=== PATIENT | female | born 1945 | race Caucasian/White ===

== ENCOUNTER 2019-07-26 09:06 | Inpatient (IN) | payer BC ==
[~2019-07-26] VITALS: Ht 160 cm; Wt 68.0 kg
[~2019-07-26 09:06] MED LIST: CHILDREN'S ASPI81 MG PO; ESTROGEL50 GM TOP; FLUDROCORTISON0.1 MG PO; GABAPENTIN600 M1 PO; LEVOCETIRIZINE D5 MG PO; LUNESTA3 MG PO; MUCINEX1200 MG PO; NORCO 10-325 T1 EACH PO; PREMARIN VAGI42.5 G1; TRAZODONE 150150 M1 PO; VALACYCLOVIR1000 MG PO
[2019-07-26 09:16] VITALS: BP 107/80
[2019-07-26 09:22] LABS: URINE BILIRUBIN NEGATIVE (Negative); URINE BLOOD NEGATIVE (Negative); URINE CLARITY CLEAR; URINE COLOR YELLOW; URINE GLUCOSE-RANDOM NEGATIVE (Negative); URINE KETONES NEGATIVE (Negative); URINE LEUKOCYTES-REFLEX NEGATIVE (Negative); URINE NITRITE-REFLEX NEGATIVE (Negative); URINE PROTEIN NEGATIVE (Negative); URINE UROBILINOGEN 0.2 E.U./dl (0.2-1.0)
[2019-07-26 09:40] LABS: ABSOLUTE BASOPHILS 0.1 thou/uL (0.0-0.2); ABSOLUTE EOSINOPHILS 0.9 thou/uL (0.0-0.7); ABSOLUTE LYMPHOCYTES 1.3 thou/uL (0.8-5.3); ABSOLUTE MONOCYTES 0.6 thou/uL (0.0-1.2); ABSOLUTE NEUTROPHILS 6.9 thou/uL (1.6-8.1); EOSINOPHILS 9.2 %; HEMATOCRIT 39.9 % (37.0-47.0); HEMOGLOBIN 13.4 gm/dL (12.0-15.0); LYMPHOCYTES 12.9 %; MCH 29.3 pg (26.0-34.0); MCHC 33.6 g/dL (28.0-37.0); MCV 87.3 fL (80.0-100.0); MONOCYTES 6.1 %; MPV 7.6 fl. (7.2-11.1); NUCLEATED RBCS 0 /100WBC; PLATELET COUNT* 477 thou/uL (150-400); POLYS 70.8 %; RBC 4.57 mil/uL (4.20-5.00); RDW-CV 14.8 % (10.5-14.5); WBC 9.7 thou/uL (4.0-11.0)
[2019-07-26 10:20] LABS: CALCIUM 9.2 mg/dL (8.5-10.1); CREATININE 1.2 mg/dL (0.6-1.3); POTASSIUM 4.7 mmol/L (3.5-5.1)
[2019-07-26 10:24] LABS: ALBUMIN 3.1 g/dL (3.4-5.0); TOTAL BILIRUBIN 0.5 mg/dL (<0.1-1.0); TOTAL PROTEIN 6.6 g/dL (6.4-8.2)
[2019-07-26 13:17] VITALS: BP 134/86
[2019-07-26 14:00] VITALS: BP 134/86
--- NOTE | 2019-07-26 15:41 | EKG ---
[place] [address] ELECTROCARDIOGRAM REPORT Name: AQUILINO SZYMANSKI Room: [address] ADM IN M.R.#: [id number] Admission: 07/26/19 Attend Phys: Tamara Barajas Discharge: Date of : 47 Report #: [id number] THIS REPORT FOR: //name// [facility] ED Test Date: 2019-07-26 Test Time: 09:36:13 Pat Name: AQUILINO SZYMANSKI Department: Room: [facility] Gender: F Production Support Supervisor: : 1945 Requested By: Timi Weathers Order Number: [id number] MD: Kody Todd Measurements Intervals [place] Rate: 81 P: [place]: 115 QRS: 8 QRSD: 96 T: 27 QT: 365 QTc: 424 Interpretive Statements Atrial-paced complexes Low voltage, precordial leads Baseline wander in lead(s) I Compared to ECG 10/16/2015 07:56:15 ventricular depolarization is no longer paced Electronically Signed On 07-26-2019 15:41:26 PERSONAL INSURANCE ADVISOR by Kody Todd [email or web address] <ELECTRONICALLY SIGNED> By: Kody Todd MD, FAC 07/26/19 1541 0936 0936 Kody Todd MD, [facility] /EPI
[2019-07-26 21:00] VITALS: BP 114/72
[2019-07-27 04:35] LABS: HEMOGLOBIN 11.5 gm/dL (12.0-15.0); MCH 28.9 pg (26.0-34.0); MCHC 32.7 g/dL (28.0-37.0); MCV 88.2 fL (80.0-100.0); MPV 7.5 fl. (7.2-11.1); RBC 3.97 mil/uL (4.20-5.00); RDW-CV 14.9 % (10.5-14.5); WBC 6.3 thou/uL (4.0-11.0)
[2019-07-27 04:42] LABS: CALCIUM 8.6 mg/dL (8.5-10.1); POTASSIUM 4.4 mmol/L (3.5-5.1)
[2019-07-27 07:55] VITALS: BP 119/77
[2019-07-27 19:30] VITALS: BP 104/68
[2019-07-28 04:00] VITALS: BP 140/72
[2019-07-28 05:32] LABS: ABSOLUTE EOSINOPHILS 0.5 thou/uL (0.0-0.7); ABSOLUTE LYMPHOCYTES 1.3 thou/uL (0.8-5.3); ABSOLUTE MONOCYTES 0.5 thou/uL (0.0-1.2); BASOPHILS 0.6 %; EOSINOPHILS 6.6 %; HEMATOCRIT 36.5 % (37.0-47.0); LYMPHOCYTES 17.6 %; MCHC 32.8 g/dL (28.0-37.0); MCV 88.4 fL (80.0-100.0); MONOCYTES 6.9 %; MPV 7.3 fl. (7.2-11.1); NUCLEATED RBCS 0 /100WBC; PLATELET COUNT* 401 thou/uL (150-400); POLYS 68.3 %; RBC 4.13 mil/uL (4.20-5.00); RDW-CV 14.9 % (10.5-14.5); WBC 7.4 thou/uL (4.0-11.0)
[2019-07-28 06:06] LABS: CALCIUM 8.7 mg/dL (8.5-10.1); POTASSIUM 4.4 mmol/L (3.5-5.1)
[2019-07-28 08:10] VITALS: BP 117/79
[2019-07-28 16:00] VITALS: BP 144/70
[2019-07-28 20:00] VITALS: BP 101/65
[2019-07-29 00:18] VITALS: BP 114/71
[2019-07-29 04:00] VITALS: BP 119/49
[2019-07-29 07:35] VITALS: BP 124/72
[2019-07-29 08:26] LABS: HEMATOCRIT 37.1 % (37.0-47.0); HEMOGLOBIN 12.2 gm/dL (12.0-15.0); MCV 88.1 fL (80.0-100.0); MPV 7.5 fl. (7.2-11.1); RBC 4.21 mil/uL (4.20-5.00); RDW-CV 14.7 % (10.5-14.5); WBC 14.1 thou/uL (4.0-11.0)
[2019-07-29 08:42] LABS: PROTIME 10.3 Seconds (9.20-11.50)
--- NOTE | 2019-07-29 12:37 | CON ---
[address] [address] CONSULTATION Name: AQUILINO SZYMANSKI Room: [address] IN .R.#: [id number] Admission: 07/26/19 Attend Phys: Tamara Barajas Discharge: Date of : 47 Report #: [id number] THIS REPORT FOR: //name// CC: Tamara Jimenez DATE OF SERVICE: 07/26/2019 REASON FOR CONSULTATION: Abdominal mass. SUBJECTIVE: A 74-year-old female who had a prior history of right-sided breast cancer, status post lumpectomy, received radiation therapy. The patient reported that she did not have any adjuvant endocrine treatment or chemotherapy at that time. She did not have a followup in terms of mammograms. The patient stated that she elected not to have an annual mammogram. She reported generalized abdominal pain, nonradiating, 3/10 in severity for the last 6 months in addition to bloating and increased abdominal girth. She denies any nausea, vomiting or weight loss. REVIEW OF SYSTEMS: All systems were reviewed. It was negative except the above. PAST MEDICAL HISTORY: GERD, history of breast cancer. PAST SURGICAL HISTORY: Lumpectomy, gastric ulcer surgery x 2 in 1989, hysterectomy, but no oophorectomy. MEDICATIONS: Per admission list. ALLERGIES: MORPHINE AND LATEX. SOCIAL HISTORY: No smoking, no alcohol abuse, no drug abuse. FAMILY HISTORY: Noncontributory. PHYSICAL EXAMINATION: VITAL SIGNS: Today, temperature 36.8, pulse 70, respirations 16, blood pressure is 134/86, SpO2 was 96% on room air. GENERAL: The patient was lying in bed. She was not in acute distress. LUNGS: Clear to auscultations bilaterally. HEART: Regular rate and rhythm. S1, S2 within normal limits. ABDOMEN: Soft, nontender. However, it is distended. EXTREMITIES: No edema, no cyanosis, no clubbing. LABORATORY DATA: Today, WBC 9.7, hemoglobin 13.4, platelets 477, creatinine 1.2. CA-125 [place] [address] CONSULTATION Name: AQUILINO SZYMANSKI Room: [address] IN [facility]#: [id number] Admission: 07/26/19 Attend Phys: Tamara Barajas Discharge: Date of : 47 Report #: [id number] IMAGING: CT abdomen showed large central mesenteric and intraperitoneal fluids with multiple enhancing peritoneal soft tissues concerning for malignant ascites and multiple soft tissues in the left upper quadrant omentum. A CT chest is still pending. ASSESSMENT AND PLAN: A 74-year-old female who had a past medical history of breast cancer, status post lumpectomy. The patient had unavailable records at that time, presenting with abdominal retroperitoneal masses consistent with active malignancy. RECOMMENDATIONS: 1. We will arrange for a biopsy by Interventional Radiology. 2. Pain management per hospital team. 3. We will wait for CA-125. 4. I recommend stopping her hormone replacement therapy until we evaluate her pathology. We will follow the patient during hospitalization. <ELECTRONICALLY SIGNED> By: Jomar Fuentes MD 07/29/19 1237 1554 0002Mojulissa Fuentes MD /nt
[2019-07-29 15:11] LABS: BF RBC 1931 /mm3; TOTAL CELL COUNT 299 /mm3
[2019-07-29 15:28] LABS: CLARITY HAZY; TOTAL VOLUME 3460 ml
[2019-07-29 15:30] LABS: BF OTHER CYTO TO FOLLOW
[2019-07-29 15:41] LABS: BF LYMPHOCYTES 91 %; BF POLYS 9 %; BF TISSUE 8 /100 WBC
[2019-07-29 15:42] LABS: SOURCE PARACENTESIS
[2019-07-29 16:29] VITALS: BP 107/65
[2019-07-29 19:57] VITALS: BP 119/80
[2019-07-30 05:23] LABS: HEMOGLOBIN 11.4 gm/dL (12.0-15.0); MCH 29.4 pg (26.0-34.0); MCHC 33.5 g/dL (28.0-37.0); MCV 87.6 fL (80.0-100.0); MPV 7.1 fl. (7.2-11.1); NUCLEATED RBCS 0 /100WBC; PLATELET COUNT* 393 thou/uL (150-400); RBC 3.88 mil/uL (4.20-5.00); RDW-CV 14.7 % (10.5-14.5); WBC 9.2 thou/uL (4.0-11.0)
[2019-07-30 05:30] LABS: CREATININE 1.1 mg/dL (0.6-1.3); POTASSIUM 4.5 mmol/L (3.5-5.1)
[2019-07-30 06:16] LABS: ABSOLUTE EOSINOPHILS 1.5 thou/uL (0.0-0.7); ABSOLUTE LYMPHOCYTES 1.2 thou/uL (0.8-5.3); ABSOLUTE MONOCYTES 0.4 thou/uL (0.0-1.2); ABSOLUTE NEUTROPHILS 6.2 thou/uL (1.6-8.1); ATYPICAL LYMPHS 1 %; PLATELET ESTIMATE ADEQUATE
[2019-07-30 08:05] VITALS: BP 107/66
[2019-07-30 12:06] LABS: BODY FLUID AMYLASE 137 U/L (()); BODY FLUID LDH 776 IU/L (()); BODY FLUID PROTEIN 4.4 g/dL (())
[2019-07-30] MEDS ORDERED: OXYCODONE HCL 55 MG PO (13:34)
[2019-07-30 13:38] VITALS: BP 107/66
[2019-07-31 21:46] LABS: SOURCE ABDOMINAL
--- NOTE | 2019-08-05 13:07 | PATH ---
[address] [address] PATHOLOGY RPT PROCEDURE Name: AQUILINO SZYMANSKI Room: [address] IN [facility]#: [id number] Admission: 07/26/19 Date of : 47 Discharge: 07/30/19 Report #: [id number] Path Case #: [id number] Note [facility] Accession Number: [id number] TESTS RESULT FLAG UNITS REF RANGE LAB Clinician Provided Cytology Information No. of containers..01 Other (Miscellaneous) Source: ASCITES DIAGNOSIS: 02 ASCITES INCONCLUSIVE. SCANT CELLULARITY WITH RARE ATYPICAL CELLS SUSPICIOUS FOR MALIGNANCY. SEE COMMENT. THIS INTERPRETATION INCLUDES EVALUATION OF A CELL BLOCK. COMMENT: THE ABDOMINAL/PELVIC CT SCAN PERFORMED 07/26/2019 SHOWING MULTIPLE PERITONEAL SOFT TISSUE NODULES SUSPICIOUS FOR PERITONEAL METASTASES IS NOTED. REVIEW OF DR. PENNIE ROBB'S CONSULTATION REPORT DATED 07/26/2019 REVEALS A HISTORY OF RIGHT-SIDED BREAST CANCER STATUS POST LUMPECTOMY/RADIATION THERAPY. REVIEWED WITH DR. GABBIE FLORES, WHO AGREES WITH THE DIAGNOSIS. Signed out by: 02 Eduardo Davalos MD, Pathologist NPI- [id number] Performed by: Rudolph Coello, Wet Process Miller Head Assistant (ASCP) Gross description: 01 50ML, YELLOW, CLOUDY /LCS 09/03/1840 0000 Local FLAG LEGEND: L-Low Normal,H-High Normal,LL-Alert Low,HH-Alert High <-Panic Low,>-Panic High,A-Abnormal,AA-Critical Abnormal Performed at: 01 [facility] [address] [place] [address] Angel Dias MD, [address] [place] [address] Eduardo Davalos MD, Specimen Comment: A courtesy copy of this report has been sent to [phone] Specimen Comment: [phone], Specimen Comment: [id number] Specimen Comment: Report sent to ,DR ELDRIDGE,[place] [address] PATHOLOGY RPT PROCEDURE Name: AQUILINO SZYMANSKI Room: [address] IN [facility].#: [id number] Admission: 07/26/19 Date of : 47 Discharge: 07/30/19 Report #: [id number] Path Case #: [id number] Specimen Comment: Report sent to Performed at: 01 [facility] [place] [address], [place], [place] [id number] MD Angel Dias MD Phone: [phone]
== END 2019-07-30 13:05 | disposition home or self-care (01) | DRG 843 ==
LOC: M.ERS 09:06 → M.TBA-ER 11:50 → M.ORTHSURG 11:50
PROVIDERS: Emergency Medicine Emergency Medical Services; Internal Medicine; ADMIT Family Medicine
PROC: 0W9G3ZZ Drainage of Peritoneal Cavity, Percutaneous Approach (ICD-10-PCS; principal; 2019-07-29)
DX: C79.89 Secondary malignant neoplasm of other specified sites (principal); J96.01 Acute respiratory failure with hypoxia; E43 Unspecified severe protein-calorie malnutrition; C80.1 Malignant (primary) neoplasm, unspecified; K21.9 Gastro-esophageal reflux disease without esophagitis; M19.90 Unspecified osteoarthritis, unspecified site; D47.3 Essential (hemorrhagic) thrombocythemia; K59.00 Constipation, unspecified; Z90.710 Acquired absence of both cervix and uterus; Z88.6 Allergy status to analgesic agent; Z91.040 Latex allergy status; Z85.3 Personal history of malignant neoplasm of breast; Z87.891 Personal history of nicotine dependence; Z68.26 Body mass index [BMI] 26.0-26.9, adult

== ENCOUNTER 2019-08-06 17:04 | Inpatient (IN) | payer BC ==
[~2019-08-06 17:04] MED LIST changes: +OXYCODONE HCL 55 MG PO
[2019-08-07 11:05] VITALS: BP 91/60
[2019-08-07 12:45] LABS: ABSOLUTE BASOPHILS 0.1 thou/uL (0.0-0.2); ABSOLUTE EOSINOPHILS 0.6 thou/uL (0.0-0.7); ABSOLUTE LYMPHOCYTES 1.3 thou/uL (0.8-5.3); ABSOLUTE MONOCYTES 0.6 thou/uL (0.0-1.2); ABSOLUTE NEUTROPHILS 6.4 thou/uL (1.6-8.1); BASOPHILS 0.8 %; EOSINOPHILS 6.2 %; HEMOGLOBIN 12.3 gm/dL (12.0-15.0); LYMPHOCYTES 14.2 %; MCH 28.4 pg (26.0-34.0); MCHC 32.4 g/dL (28.0-37.0); MCV 87.7 fL (80.0-100.0); MONOCYTES 6.6 %; MPV 7.5 fl. (7.2-11.1); NUCLEATED RBCS 0 /100WBC; PLATELET COUNT* 545 thou/uL (150-400); POLYS 72.2 %; RBC 4.33 mil/uL (4.20-5.00); RDW-CV 14.8 % (10.5-14.5); WBC 8.9 thou/uL (4.0-11.0)
[2019-08-07 13:08] LABS: ALBUMIN 2.6 g/dL (3.4-5.0); CALCIUM 8.9 mg/dL (8.5-10.1); CREATININE 1.3 mg/dL (0.6-1.3); POTASSIUM 4.4 mmol/L (3.5-5.1); TOTAL BILIRUBIN 0.3 mg/dL (<0.1-1.0); TOTAL PROTEIN 6.4 g/dL (6.4-8.2)
[2019-08-07 15:15] VITALS: BP 90/57
[2019-08-07 21:00] VITALS: BP 105/63
[2019-08-08] VITALS (16 sets, daily range): BP systolic 83–128; BP diastolic 57–80
[2019-08-08 04:20] LABS: CALCIUM 8.4 mg/dL (8.5-10.1); CREATININE 1.1 mg/dL (0.6-1.3); POTASSIUM 4.1 mmol/L (3.5-5.1)
--- NOTE | 2019-08-08 12:16 | CON ---
[address] [address] CONSULTATION Name: AQUILINO SZYMANSKI Room: [address] IN M.R.#: [id number] Admission: 08/07/19 Attend Phys: Monique Avila Discharge: Date of : 47 Report #: [id number] THIS REPORT FOR: //name// CC: Kody Ruizon Tomasz Benites DATE OF SERVICE: 08/07/2019 INFECTIOUS DISEASE CONSULTATION ATTENDING PHYSICIAN: Tomasz Benites MD REASON FOR EVALUATION: Retroperitoneal mass complicated by gram-negative infection. HISTORY OF PRESENT ILLNESS: Chart reviewed, patient examined. This is a 74-year-old woman who was actually hospitalized in July of this year with abdominal pain, was found to have a retroperitoneal mass, does have a of history of stomach surgery in the distant past and previous hysterectomy, as part of the evaluation, underwent biopsy and collection of some ascitic fluid or some atypical cells. In addition to the pathology, ascites were obtained showing gram-negative delores. Interestingly, it was collected on , was reported positive only recently. She was instructed to come back in. She notes she has significant pain associated with the site, feels like the fluid is re-accumulating. It is not clear that she has had significant fevers. She does admit to some chills. She states her appetite has been reasonably stable. Weight, she suspects, has been unchanged as well, denies any significant pulmonary-related complaints. ALLERGIES: MORPHINE AND LATEX. CURRENT MEDICATIONS: Include fentanyl, tramadol, oxycodone, trazodone, zolpidem, and ceftriaxone. PAST MEDICAL HISTORY: Includes hysterectomy, history of stomach ulcer surgery x 2, and breast cancer suspected malignancy with ascites. SOCIAL HISTORY: Former smoker. No ethanol. FAMILY HISTORY: Noncontributory. REVIEW OF SYSTEMS: As above. PHYSICAL EXAMINATION: GENERAL: She appears somewhat chronically ill, undernourished, she is pleasant, cooperative. [place] [address] CONSULTATION Name: AQUILINO SZYMANSKI Room: [address]#: [id number] Admission: 08/07/19 Attend Phys: Monique Avila Discharge: Date of : 47 Report #: [id number] VITAL SIGNS: Temperature 98, pulse 65, respirations 17, blood pressure 90/57. SKIN: Warm, dry, no rashes. HEENT: Normocephalic. Extraocular muscles are intact. NECK: Supple. LUNGS: Diminished breath sounds. HEART: Regular. ABDOMEN: Distended, somewhat firm, suggest fluid. It is tender. Some generalized pain. GENITOURINARY AND RECTAL: Deferred. LABORATORY DATA: Blood cultures as described above, gram-negative delores and the ascitic fluid. Lactic acid 1.1. Electrolytes: Sodium 138, potassium 4.4, chloride 104, bicarbonate 26, anion gap of 8, BUN and creatinine 24 and 1.3, glucose of 93, alkaline phosphatase of 209. LFTs are unremarkable. Albumin of 2.6. Total protein 6.4. Chest x-ray: Small bilateral pleural effusions. Path report as described above, scant cellularity with rare atypical cells. Previous lab and blood cultures collected today are negative, thus far. White count of 8.9, hemoglobin and hematocrit 12.3 and 38.0, and platelets of 545. ASSESSMENT AND PLAN: Bacterial peritonitis. At this point, interestingly, there is long delay in the growth. There is question of anaerobic bacteria. We will adjust therapy. At this point, she is not allergic. She is not aware if she is allergic to anything, may benefit from additional paracentesis, noted at Hematology/Oncology consultation as well as GI. We will defer any additional imaging at this point. <ELECTRONICALLY SIGNED> By: Ed Mclean MD 08/08/19 1216 1708 [id number] Mclean MD /nt
[2019-08-09] VITALS: BP 96/60
[2019-08-09 07:49] VITALS: BP 111/72
[2019-08-09 16:00] VITALS: BP 112/64
[2019-08-09 19:45] VITALS: BP 122/77
[2019-08-10 08:45] VITALS: BP 105/72
[2019-08-10 17:31] VITALS: BP 105/66
[2019-08-10 19:40] VITALS: BP 113/75
[2019-08-11 04:30] LABS: HEMATOCRIT 35.1 % (37.0-47.0); HEMOGLOBIN 11.6 gm/dL (12.0-15.0); MCH 28.9 pg (26.0-34.0); MCHC 33.1 g/dL (28.0-37.0); MCV 87.3 fL (80.0-100.0); MPV 7.3 fl. (7.2-11.1); NUCLEATED RBCS 0 /100WBC; PLATELET COUNT* 525 thou/uL (150-400); RBC 4.03 mil/uL (4.20-5.00); RDW-CV 15.5 % (10.5-14.5); WBC 8.8 thou/uL (4.0-11.0)
[2019-08-11 06:50] LABS: ABSOLUTE BASOPHILS 0.1 thou/uL (0.0-0.2); ABSOLUTE EOSINOPHILS 1.1 thou/uL (0.0-0.7); ABSOLUTE LYMPHOCYTES 1.3 thou/uL (0.8-5.3); ABSOLUTE MONOCYTES 0.8 thou/uL (0.0-1.2); ABSOLUTE NEUTROPHILS 5.5 thou/uL (1.6-8.1); CLUMPED PLTS OCCASIONAL; PLATELET ESTIMATE INCREASED
[2019-08-11 08:10] VITALS: BP 120/73
--- NOTE | 2019-08-11 13:01 | CON ---
[address] [address] CONSULTATION Name: AQUILINO SZYMANSKI Room: [address] IN .R.#: [id number] Admission: 08/07/19 Attend Phys: Monique Avila Discharge: Date of : 47 Report #: [id number] THIS REPORT FOR: //name// CC: Kody Benites DATE OF SERVICE: 08/07/2019 REASON FOR CONSULTATION: Metastatic intra-abdominal carcinoma, unknown primary. SUBJECTIVE: A 74-year-old female who has been evaluated last week due to multiple incident multiple abdominal intraperitoneal metastases. The patient was arranged to have had a biopsy by Interventional Radiology; however, she underwent paracentesis and fluid cytology showed scant cellularity with rare atypical cells suspicious of malignancy. The patient was called to be back to the hospital after she had a culture back positive for gram-negative rods of the ascites. She was treated with intravenous antibiotics. The patient reported abdominal pain; however, she denies any nausea or vomiting. REVIEW OF SYSTEMS: All systems reviewed. It was negative. PAST MEDICAL HISTORY: Prior breast cancer, GERD. PAST SURGICAL HISTORY: Lumpectomy, gastric ulcer surgery, and hysterectomy. MEDICATIONS: Per admission list. ALLERGIES: MORPHINE AND LATEX. SOCIAL HISTORY: No smoking, no alcohol abuse, no drug abuse. FAMILY HISTORY: Noncontributory. PHYSICAL EXAMINATION: VITAL SIGNS: Today, temperature is 36.7, pulse is 65, respirations are 17, blood pressure is 90/57, and SpO2 was 95% on room air. GENERAL: The patient was lying in bed. She was not in acute distress. LUNGS: Decreased breathing sounds bilaterally. HEART: Regular rate and rhythm. S1, S2 within normal limits. ABDOMEN: Positive for ascites. EXTREMITIES: 1+ edema. LABORATORY DATA: Today, WBC 8.9, hemoglobin 12.3, and platelets 545. Sodium is 138, potassium is 4.4, creatinine is 1.3, AST is 18, ALT 16, and alkaline phosphatase is 209[place] [address] CONSULTATION Name: NESSAAQUILINO MUNIRA Room: [address] IN ..#: [id number] Admission: 08/07/19 Attend Phys: Monique Avila Discharge: Date of : 47 Report #: [id number] IMAGING: Chest x-ray today showed small bilateral pleural effusion. Prior imaging has been reviewed last week. ASSESSMENT AND PLAN: A 74-year-old female who was evaluated last week because of peritoneal metastases. The patient had elevated CA-125. Her clinical presentation may indicate ovarian cancer; however, she has a prior history of breast cancer. A paracentesis was not diagnostic enough for pathology. RECOMMENDATIONS: 1. Agree with intravenous antibiotics. However, we still need to establish diagnosis. We will ask Interventional Radiology for second attempt for biopsy. 2. If biopsy is not feasible, the next step will be refer to [facility] at [facility] as an outpatient to discuss cytoreductive surgery. <ELECTRONICALLY SIGNED> By: Jomar Fuentes MD 08/11/19 1301 1755 2036Jomar Fuentes MD /nt
[2019-08-11 16:35] VITALS: BP 100/53; BP 142/76
[2019-08-12 05:28] VITALS: BP 113/66
[2019-08-12 16:00] VITALS: BP 113/76
[2019-08-12 20:10] VITALS: BP 135/87
[2019-08-13 04:50] LABS: ABSOLUTE BASOPHILS 0.1 thou/uL (0.0-0.2); ABSOLUTE EOSINOPHILS 1.4 thou/uL (0.0-0.7); ABSOLUTE LYMPHOCYTES 1.6 thou/uL (0.8-5.3); ABSOLUTE MONOCYTES 0.6 thou/uL (0.0-1.2); ABSOLUTE NEUTROPHILS 5.8 thou/uL (1.6-8.1); BASOPHILS 0.8 %; EOSINOPHILS 14.8 %; HEMATOCRIT 36.4 % (37.0-47.0); HEMOGLOBIN 12.2 gm/dL (12.0-15.0); LYMPHOCYTES 16.5 %; MCH 28.7 pg (26.0-34.0); MCHC 33.5 g/dL (28.0-37.0); MCV 85.9 fL (80.0-100.0); MPV 7.2 fl. (7.2-11.1); NUCLEATED RBCS 0 /100WBC; PLATELET COUNT* 507 thou/uL (150-400); POLYS 61.9 %; RBC 4.24 mil/uL (4.20-5.00); WBC 9.4 thou/uL (4.0-11.0)
[2019-08-13 04:58] LABS: CALCIUM 8.8 mg/dL (8.5-10.1); CREATININE 0.9 mg/dL (0.6-1.3); POTASSIUM 3.9 mmol/L (3.5-5.1)
[2019-08-13 08:00] VITALS: BP 123/80
[2019-08-13 12:36] VITALS: BP 120/55
[2019-08-13] MEDS ORDERED: DURAGESIC1 EAC4 TRANSDERM (13:00)
[2019-08-13 13:01] VITALS: BP 120/55
--- NOTE | 2019-08-13 18:06 | PATH ---
[address] [address] PATHOLOGY RPT PROCEDURE Name: AQUILINO SZYMANSKI Room: [address] IN .R.#: [id number] Admission: 08/07/19 Date of : 47 Discharge: 08/13/19 Report #: [id number] Path Case #: [id number] [facility] Accession Number: [id number] . 01 Material submitted: . peritoneum - RIGHT LOWER QUADRANT PERITONEAL MASS. Modifiers: right, lower . 01 Clinical history: . 4.66 x 3.77 x 3.88 cm . 02 Diagnosis: Right lower quadrant peritoneal mass: - Adenocarcinoma, moderately differentiated, associated with calcifications, most consistent with gynecologic primary. See comment. (DEEPAK:lanette; 08/13/2019) MBR 08/13/2019 1023 Local . 02 Comment: Minute fragments of malignant glands are seen in association with desmoplastic stroma and prominent calcifications. Focal tumor necrosis is noted. A panel of properly controlled immunohistochemical studies performed on A1 show the neoplastic cells to have the following characteristics, supporting the diagnosis: . PAX 8 - positive. WT-1 - positive. MIN 3 - negative. Estrogen receptor - positive. Calretinin - negative (highlights few mesothelial cells). CDX2 - negative. . The clinical history of right-sided breast cancer status post lumpectomy and radiation therapy (Dr. Fuentes's consultation report dated 07/26/2019) is noted. The constellation of histologic and immunohistochemical findings are much more typical of a gynecologic primary including ovary and endometrium. . Reviewed with Dr. Azeem Pinto who agrees with the diagnosis. . Dr. Fernandez notified at approximately 1545 on 08/13/2019. . (DEEPAK:first aid trainer; 08/13/2019) . 02 Electronically signed: . Eduardo Davalos MD, Pathologist NPI- [id number] . 01 Gross description: [place] [address] PATHOLOGY RPT PROCEDURE Name: AQUILINO SZYMANSKI Room: [address] IN [facility]#: [id number] Admission: 08/07/19 Date of : 47 Discharge: 08/13/19 Report #: [id number] Path Case #: [id number] The specimen is received in formalin, labeled "URIEL Diane peritoneal mass". Received are several minute fragments of pale heredia soft tissue measuring 0.2 x 0.2 x 0.1 cm in aggregate dimensions. The specimen is filtered and entirely submitted in cassette A1. (CAA; 08/09/2019) QAC/QAC 08/13/2019 1015 Local . 02 Pathologist provided ICD-10: C48.2 . 02 CPT . 600846, E56797, O96432 Specimen Comment: A courtesy copy of this report has been sent to [phone] Specimen Comment: [phone], Specimen Comment: Report sent to ,DR FERNANDEZ,DR HENSLEY / DR CALDWELL Performed at: 01 [facility] [address] [place] [address] [address], [place], [place] [id number] MD Angel Dias MD Phone: [phone] Performed at: 02 [facility] [place] [address] [address], [place], [place] [id number] MD Eduardo Davalos MD Phone: [phone]
--- NOTE | 2019-08-15 09:57 | CON ---
[address] [address] CONSULTATION Name: AQUILINO SZYMANSKI Room: [address] IN M.R.#: [id number] Admission: 08/07/19 Attend Phys: Monique Avila Discharge: 08/13/19 Date of : 47 Report #: [id number] THIS REPORT FOR: //name// CC: Kody Benites DICTATED BY: Mary Payne [facility] DATE OF SERVICE: 08/08/2019 Please note at the time of this dictation, the patient was seen and physically examined by myself. REASON FOR CONSULTATION: Malignant ascites. HISTORY OF PRESENT ILLNESS: This is a 74-year-old female who was called by her PCP regarding a paracentesis that she had done earlier that was done by interventional radiologist that showed scant cellularity with rare atypical cells suspicious of malignancy and she was asked to come back to the hospital as well because it also showed culture came back positive for gram-negative rods of the ascitic fluid. ID and Oncology have been consulted as well. The patient states that she does have issues with chronic constipation in which she has to take Dulcolax tablets regularly to have a bowel movement. She states she has had that problem for some time. She did have a colonoscopy several years ago, she thinks out in [facility] somewhere that she was told that it was okay, but does not recall where or who did it. She denies any nausea, vomiting. She was having some abdominal pain with some distention that she began noticing. She denies any bright red blood or black in her stool. She denies any NSAID use at this time. ALLERGIES: MORPHINE AND LATEX. MEDICATIONS FROM HOME: See her MAR. PAST MEDICAL HISTORY: Acid reflux and benign breast tumor. PAST SURGICAL HISTORY: She had a lumpectomy, had gastric ulcer surgery in the past and hysterectomy. FAMILY HISTORY: Negative for any GI or female cancers. SOCIAL HISTORY: Nonsmoker, no alcohol or illegal drug use. REVIEW OF SYSTEMS: A 12-point review of systems [place] [address] CONSULTATION Name: AQUILINO SZYMANSKI Room: [address]#: [id number] Admission: 08/07/19 Attend Phys: Monique Avila Discharge: 08/13/19 Date of : 47 Report #: [id number] what is mentioned in the HPI. PHYSICAL EXAMINATION: VITAL SIGNS: Temperature 36.9, pulse 66, respirations 17, blood pressure 105/63. HEART: Regular rate and rhythm. LUNGS: Clear. ABDOMEN: Distended, firm with generalized tenderness noted to palpation. LABORATORY DATA: Hemoglobin 12.3, white count 8.9, platelets 545. GFR is 49. Total bilirubin 0.3, alkaline phosphatase is 209, ALT 16, AST is 18. The patient had an outside CT done of her abdomen and pelvis that was done on 07/26/2019 that showed a large amount of central mesenteric root and intraperitoneal fluid with multiple peripheral enhancing peritoneal soft tissue nodules, highly concerning for malignant ascites with peritoneal metastasis. There are some multiple soft tissue nodules seen within the left upper quadrant omentum consistent with metastatic disease. There is a partially solid, partially cystic nodule along the inferior tip of the right lobe of the liver, likely representing a metastatic implant. There are 2 areas of decreased enhancement within the medial segment of the left lobe of the liver, previous cholecystectomy and hysterectomy and a 5-mm low density lesion noted in the spleen and a 2.5 left renal cyst. IMPRESSION: 1. Malignant ascites. 2. Spontaneous bacterial peritonitis. 3. Chronic constipation. 4. Chronic kidney disease. PLAN: 1. Recommendations for repeat ultrasound-guided paracentesis for diagnostic purposes by IR. 2. Two senna b.i.d. to help with her chronic constipation. 3. ID and Oncology already on board. 4. No further recommendations from GI at this time. Thank you for allowing us to participate in this patient's care. Please do not hesitate to call with any questions in regard to this consult. <ELECTRONICALLY SIGNED> By: Rodrigo Alberto MD 08/15/19 0957 1300 1410Rodrigo Alberto MD /nt
--- NOTE | 2019-08-15 13:07 | PATH ---
[address] [address] PATHOLOGY RPT PROCEDURE Name: AQUILINO SZYMANSKI Room: [address] IN [facility]#: [id number] Admission: 08/07/19 Date of : 47 Discharge: 08/13/19 Report #: [id number] Path Case #: [id number] Note [facility] Accession Number: [id number] TESTS RESULT FLAG UNITS REF RANGE LAB Clinician Provided Cytology Information No. of containers..01 Other (Miscellaneous) Source: [A] 01 ASCITES DIAGNOSIS: [A] 02 ASCITES RARE GROUPS, SUSPICIOUS FOR MALIGNANCY. SEE COMMENT. THIS INTERPRETATION INCLUDES EVALUATION OF A CELL BLOCK. COMMENT: THE ACCOMPANYING RIGHT LOWER QUADRANT PERITONEAL MASS BIOPSY SHOWS ADENOCARCINOMA SUGGESTING A CERTIFIED OPHTHALMIC TECHNOLOGIST PRIMARY ([id number]). Signed out by: 02 Eduardo Davalos MD, Pathologist NPI- [id number] Performed by: 01 Linda Huber, Incising Machine Operator ([facility]) Gross description: 01 25ML, RED, CLOUDY /LCS 08/09/2019 1409 Local FLAG LEGEND: L-Low Normal,H-High Normal,LL-Alert Low,HH-Alert High <-Panic Low,>-Panic High,A-Abnormal,AA-Critical Abnormal Performed at: [address] [place] [address] Angel Dias MD, [address] [address] Eduardo Davalos MD, Specimen Comment: A courtesy copy of this report has been sent to [phone] Specimen Comment: [id number] Specimen Comment: Report sent to Specimen Comment: A duplicate report has been generated due to demographic updates. Performed at: [address], [place], [place] [id number] MD Angel Dias MD Phone: [phone]
== END 2019-08-13 16:36 | disposition home or self-care (01) | DRG 843 ==
LOC: M.PRE 17:04 → M.3W 08-07 10:26 → M.TBA 08-07 10:26 → M.3W 08-07 10:31
PROVIDERS: Internal Medicine; ADMIT Internal Medicine
PROC: 0W9G30Z Drainage of Peritoneal Cavity with Drainage Device, Percutaneous Approach (ICD-10-PCS; principal; 2019-08-08)
PROC: 0WBH3ZX Excision of Retroperitoneum, Percutaneous Approach, Diagnostic (ICD-10-PCS; 2019-08-09)
DX: C79.89 Secondary malignant neoplasm of other specified sites (principal); K65.2 Spontaneous bacterial peritonitis; E43 Unspecified severe protein-calorie malnutrition; N17.9 Acute kidney failure, unspecified; R18.0 Malignant ascites; I82.90 Acute embolism and thrombosis of unspecified vein; J90 Pleural effusion, not elsewhere classified; K21.9 Gastro-esophageal reflux disease without esophagitis; K59.09 Other constipation; I12.9 Hypertensive chronic kidney disease with stage 1 through stage 4 chronic kidney disease, or unspecified chronic kidney disease; Z66 Do not resuscitate; Z85.3 Personal history of malignant neoplasm of breast; Z88.5 Allergy status to narcotic agent; Z91.040 Latex allergy status; Z87.891 Personal history of nicotine dependence; Z92.3 Personal history of irradiation; Z95.0 Presence of cardiac pacemaker; Z90.710 Acquired absence of both cervix and uterus; D47.3 Essential (hemorrhagic) thrombocythemia; N18.3 Chronic kidney disease, stage 3 (moderate)